=== PATIENT | female | born 1940 ===

== ENCOUNTER 2019-02-16 10:45 | Inpatient (IN) | payer OTHER ==
[~2019-02-16] VITALS: Ht 157.5 cm; Wt 65.8 kg
[2019-02-16] MEDS ORDERED: ALLOPURINOL100 MG PO (11:47)
[2019-02-16] MEDS ORDERED: GABAPENTIN800 MG PO (11:48)
[2019-02-16] MEDS ORDERED: [UNRECOGNIZED DRUG - OTHER] PO (11:48)
[2019-02-16] MEDS ORDERED: HYDRALAZINE HCL50 MG PO (11:48)
[2019-02-16] MEDS ORDERED: TOPROL XL25 M1 PO (11:49)
[2019-02-16] MEDS ORDERED: IRBESARTAN-HCT1 EACH PO (11:49)
[2019-02-16] MEDS ORDERED: RANITIDINE HCL150 M1 PO (11:50)
[2019-02-16] MEDS ORDERED: ZOCOR20 MG PO (11:50)
[2019-02-21] MEDS ORDERED: CILOSTAZOL50 MG PO (09:07)
== END 2019-02-22 09:01 | disposition home or self-care (01) | DRG 741 ==
LOC: OB/GYN 02-21 07:02 → O/R 02-21 07:02 → SURH 02-21 10:45 → OB/GYN 02-21 14:32
PROVIDERS: ADMIT Obstetrics & Gynecology Gynecologic Oncology
PROC: 0UT74ZZ Resection of Bilateral Fallopian Tubes, Percutaneous Endoscopic Approach (ICD-10-PCS; 2019-02-21)
PROC: 0UT24ZZ Resection of Bilateral Ovaries, Percutaneous Endoscopic Approach (ICD-10-PCS; 2019-02-21)
PROC: 0UT94ZZ Resection of Uterus, Percutaneous Endoscopic Approach (ICD-10-PCS; principal; 2019-02-21 12:15)
DX: C54.1 Malignant neoplasm of endometrium (principal); I10 Essential (primary) hypertension; K21.9 Gastro-esophageal reflux disease without esophagitis